=== PATIENT | male | born 1995 | race Two or more races ===

== ENCOUNTER 2022-06-09 13:42 | Emergency (ER) | payer MEDICAID ==
[~2022-06-09] VITALS: Ht 177.8 cm; Wt 120.2 kg
--- NOTE | 2022-06-09 14:00 | NUR ---
Left great toe hematoma; furniture fell on it - 05/18/2022. Pt ambulated to bed with steady gait. [id number]. [id number]. awaiting md orders.
[2022-06-09] MEDS ORDERED: BACI30OI9 TP (16:59)
--- NOTE | 2022-06-09 17:15 | NUR ---
Patient discharged to home in stable condition. Written and verbal after care instructions given. Patient verbalizes understanding of instruction.
[2022-06-09 17:17] VITALS: BP 158/78
== END 2022-06-09 17:18 | disposition home or self-care (01) ==
LOC: ER 13:46
DX: S90.212A Contusion of left great toe with damage to nail, initial encounter (principal); Z79.899 Other long term (current) drug therapy; W04.XXXA Fall while being carried or supported by other persons, initial encounter; Y93.89 Activity, other specified; Y92.89 Other specified places as the place of occurrence of the external cause; Y99.8 Other external cause status
CPT/HCPCS: 73610-TC; 73660-TC

== ENCOUNTER 2024-06-27 00:46 | Emergency (ER) | payer SELFPAY ==
[~2024-06-27] VITALS: Ht 177.8 cm; Wt 131.5 kg
[2024-06-27 00:46] VITALS: BP 183/107; TEMP 97.9; O2SAT 97
[~2024-06-27 00:46] MED LIST: BACI30OI9 TP
[2024-06-27] MEDS ORDERED: CEPH500T PO (01:22)
[2024-06-27] MEDS ORDERED: IBUP-1490 PO (01:22)
== END 2024-06-27 01:29 | disposition home or self-care (01) ==
LOC: ER 00:49
DX: L60.0 Ingrowing nail (principal)